=== PATIENT | female | born 1960 | race Caucasian/White ===

== ENCOUNTER 2024-06-09 18:54 | Inpatient (IN) | payer MEDICAID ==
[~2024-06-09] VITALS: Ht 162.6 cm; Wt 65.8 kg
[~2024-06-09 18:54] MED LIST: AMLO5TAB88 PO; ASPI-1406 PO; AZIT500T8 MT; CLOP-31 PO; DOXA-14 PO; INSLIS SUBCUT; LANTUSUD SUBCUT; LIP40 PO; LOSA50TA41 PO
[2024-06-09 20:00] VITALS: BP 135/49; PULSE 84; RESP 18; TEMP 36.50292; O2SAT 100
[2024-06-09 21:00] VITALS: BP 135/49; PULSE 84; RESP 18; TEMP 36.5292
[2024-06-09] MEDS ORDERED: HYDRALAZINE 20MG/ML VIAL IV PRN (22:00)
[2024-06-09] MEDS ORDERED: DEXTROSE 50% WATER 50ML SYRINGE IV PRN (22:00)
[2024-06-09] MEDS ORDERED: CLONIDINE 0.1MG TABLET PO PRN (22:00)
[2024-06-09] MEDS ORDERED: ACETAMINOPHEN 325MG TABLET PO PRN (22:00)
[2024-06-09] MEDS ORDERED: NA PHOS,M-B/NA PHOS,DI-BA ENEMA 118ML PR PRN (22:00)
[2024-06-09] MEDS ORDERED: LACTULOSE 20G/30ML UDC PO PRN (22:00)
[2024-06-09] MEDS ORDERED: HYDRALAZINE 10 MG in SODIUM CHLORIDE 0.9% 49.5 ML IV PRN (23:00)
[2024-06-10] MEDS: HYDRALAZINE HCL 50MG TABLET PO SCH (00:05)
[2024-06-10] MEDS: BLOOD SUGAR DIAGNOSTIC STRIP TEST SCH (00:06)
[2024-06-10] MEDS: INSULIN GLARGINE 100 UNITS/ML SUBCUT SCH (00:29)
[2024-06-10 06:50] VITALS: BP 117/45; PULSE 83; RESP 18; O2SAT 97
[2024-06-10 06:56] LABS: CHLORIDE 103 mEq/L (98-107); POTASSIUM 5.4 mEq/L (3.5-5.1); SODIUM 131 mEq/L (136-145)
[2024-06-10 06:59] LABS: CARBON DIOXIDE 24 mEq/L (21-32)
[2024-06-10 07:00] LABS: CALCIUM 8.7 mg/dL (8.7-10.4)
[2024-06-10 07:04] LABS: CREATININE 0.8 mg/dL (0.6-1.0); GLUCOSE 226 mg/dL (70-105); UREA NITROGEN BLOOD 39 mg/dL (9-23)
[2024-06-10 07:05] LABS: ALANINE AMINOTRANSFERASE 61 IU/L (10-49)
[2024-06-10 07:06] LABS: ASPARTATE AMINOTRANSFERASE 32 IU/L (<34); PREALBUMIN 16.2 mg/dl (10.0-40.0)
[2024-06-10 07:07] LABS: BILIRUBIN TOTAL 0.6 mg/dL (0.1-1.0); PROTEIN TOTAL 5.6 g/dL (6.0-8.3)
[2024-06-10 07:08] LABS: BASOPHILS % 0.2 % (0.0-2.0); HEMATOCRIT. 25.8 % (36.0-48.0); HEMOGLOBIN. 8.5 g/dL (12.0-16.0); LYMPHOCYTES % 12.1 % (20.0-50.0); MEAN CORPUSCULAR HEMOGLOBIN 29.1 pg (28.0-32.0); MEAN CORPUSCULAR VOLUME 88.2 fL (81.0-99.0); MEAN PLATELET VOLUME 10.4 fl (7.4-10.4); MONOCYTES % 6.1 % (2.0-8.0); NEUTROPHILS % 80.6 % (40.0-76.0); PLATELET 235 x1000/uL (130-400); RED BLOOD CELL COUNT 2.92 mill/uL (4.2-5.4); WHITE BLOOD COUNT 11.9 x1000/uL (4.5-11.0)
[2024-06-10] MEDS: ENOXAPARIN 40MG/0.4ML SYR SUBCUT SCH (08:37)
[2024-06-10] MEDS: ASPIRIN 81MG EC TABLET PO SCH (08:37)
[2024-06-10] MEDS: CLOPIDOGREL 75MG TABLET PO SCH (08:37)
[2024-06-10] MEDS: INSULIN LISPRO 100 UNITS/ML SUBCUT SCH (08:43)
[2024-06-10] MEDS: DOXAZOSIN MESYLATE 2MG TABLET PO SCH (08:44)
[2024-06-10] MEDS: AMLODIPINE 5MG TABLET PO SCH (08:45)
[2024-06-10] MEDS: LOSARTAN 50 MG TABLET PO SCH (08:45)
[2024-06-10] MEDS: SODIUM ZIRCONIUM CYCLOSILICATE 10GM/PACKET PO NR (13:13)
[2024-06-10] MEDS: BISACODYL 10MG SUPP PR NR (16:30)
[2024-06-10 20:00] VITALS: BP 138/49; PULSE 88; RESP 1; TEMP 36.3918; O2SAT 97
[2024-06-10] MEDS: ATORVASTATIN CALCIUM 40MG TABLET PO SCH (21:07)
[2024-06-11] MEDS: ONDANSETRON HCL 4MG/2ML INJ IV PRN (04:45)
[2024-06-11 07:17] LABS: CREATINE KINASE 59 IU/L (34-145)
[2024-06-11 08:00] VITALS: BP 114/66; PULSE 85; RESP 19; TEMP 36.3918; O2SAT 99
[2024-06-11] MEDS: ACETAMINOPHEN 325MG TABLET PO PRN (15:13)
[2024-06-11] MEDS ORDERED: POLYVINYL ALCOHOL OPHTH DROPS 15ML BOTHEYE PRN (16:00)
[2024-06-11 20:00] VITALS: BP 109/32; PULSE 84; RESP 18; TEMP 36.3918; O2SAT 95
[2024-06-11] MEDS: ATORVASTATIN CALCIUM 20MG TABLET PO SCH (20:24)
[2024-06-12 08:00] VITALS: BP 118/45; PULSE 82; RESP 20; TEMP 36.114; O2SAT 99
[2024-06-12 10:44] LABS: CHLORIDE 99 mEq/L (98-107); POTASSIUM 4.9 mEq/L (3.5-5.1); SODIUM 128 mEq/L (136-145)
[2024-06-12 10:45] LABS: CALCIUM 8.2 mg/dL (8.7-10.4); CARBON DIOXIDE 24 mEq/L (21-32)
[2024-06-12 10:50] LABS: GLUCOSE 329 mg/dL (70-105); IRON 40 ug/dL (50-170); UREA NITROGEN BLOOD 39 mg/dL (9-23)
[2024-06-12 10:52] LABS: ALANINE AMINOTRANSFERASE 46 IU/L (10-49); ALBUMIN 3.1 g/dL (3.2-4.8); ASPARTATE AMINOTRANSFERASE 33 IU/L (<34)
[2024-06-12 10:53] LABS: BILIRUBIN TOTAL 0.5 mg/dL (0.1-1.0); FERRITIN 308 ng/mL (10-291); FOLIC ACID (FOLATE) SERUM 14.01 ng/mL (>5.38); PROTEIN TOTAL 5.6 g/dL (6.0-8.3); THYROID STIMULATING HORMONE 1.79 uIU/mL (0.55-4.78); TOTAL IRON BINDING CAPACITY 316 ug/dl (250-425)
[2024-06-12 10:54] LABS: VITAMIN B12 SERUM 1206 pg/mL (211-911)
[2024-06-12 11:52] LABS: BASOPHILS % 0.2 % (0.0-2.0); EOSINOPHILS % 0.9 % (0.0-5.0); HEMOGLOBIN. 8.4 g/dL (12.0-16.0); LYMPHOCYTES % 13.1 % (20.0-50.0); MEAN CORPUSCULAR HGB CONC 33.7 g/dL (31.0-37.0); MEAN CORPUSCULAR VOLUME 88.9 fL (81.0-99.0); MEAN PLATELET VOLUME 10.5 fl (7.4-10.4); MONOCYTES % 5.2 % (2.0-8.0); NEUTROPHILS % 80.6 % (40.0-76.0); PLATELET 262 x1000/uL (130-400); RED BLOOD CELL COUNT 2.81 mill/uL (4.2-5.4); RED CELL DISTRIBUTION WIDTH 14.5 % (11.6-14.6); WHITE BLOOD COUNT 10.3 x1000/uL (4.5-11.0)
[2024-06-12 20:00] VITALS: PULSE 80; RESP 18; TEMP 36.50292; O2SAT 98
[2024-06-13 08:00] VITALS: BP 123/43; PULSE 84; RESP 20; TEMP 36.72516; O2SAT 99
[2024-06-13 20:00] VITALS: BP 119/46; PULSE 78; RESP 17; TEMP 36.33624; O2SAT 100
[2024-06-13] MEDS ORDERED: ALBUTEROL (0.083%) 2.5MG/3ML NEB HHN PRN (22:15)
[2024-06-14] MEDS ORDERED: ZOLPIDEM TARTRATE 5MG TABLET PO PRN (05:45)
[2024-06-14] MEDS: LORAZEPAM 0.5MG TABLET PO PRN (05:53)
[2024-06-14 06:49] LABS: BASOPHILS % 0.3 % (0.0-2.0); EOSINOPHILS % 0.9 % (0.0-5.0); HEMATOCRIT. 22.6 % (36.0-48.0); HEMOGLOBIN. 7.7 g/dL (12.0-16.0); MEAN CORPUSCULAR HEMOGLOBIN 30.6 pg (28.0-32.0); MEAN CORPUSCULAR HGB CONC 34.1 g/dL (31.0-37.0); MEAN CORPUSCULAR VOLUME 89.8 fL (81.0-99.0); MONOCYTES % 6.3 % (2.0-8.0); NEUTROPHILS % 80.5 % (40.0-76.0); PLATELET 259 x1000/uL (130-400); RED BLOOD CELL COUNT 2.52 mill/uL (4.2-5.4); RED CELL DISTRIBUTION WIDTH 14.3 % (11.6-14.6)
[2024-06-14 06:50] LABS: CARBON DIOXIDE 25 mEq/L (21-32); CHLORIDE 98 mEq/L (98-107); SODIUM 126 mEq/L (136-145)
[2024-06-14 06:52] LABS: CALCIUM 8.5 mg/dL (8.7-10.4)
[2024-06-14 06:56] LABS: CREATININE 0.9 mg/dL (0.6-1.0); GLUCOSE 214 mg/dL (70-105)
[2024-06-14 06:57] LABS: UREA NITROGEN BLOOD 41 mg/dL (9-23)
[2024-06-14 07:15] LABS: DIFFERENTIAL COMMENT 1
[2024-06-14 08:00] VITALS: BP 113/42; PULSE 80; RESP 19; TEMP 36.55848; O2SAT 100
[2024-06-14] MEDS: SODIUM ZIRCONIUM CYCLOSILICATE 10GM/PACKET PO NR (10:26)
[2024-06-14 20:00] VITALS: BP 106/64; PULSE 18; RESP 18; TEMP 36.61404; O2SAT 95
[2024-06-15 08:00] VITALS: BP 107/45; PULSE 76; RESP 20; TEMP 36.72516; O2SAT 99
[2024-06-15] MEDS: LIDOCAINE 5% PATCH TOP SCH (16:34)
[2024-06-15] MEDS ORDERED: IPRATROPIUM/ALBUTEROL 0.5-3(2.5)MG/3ML NEB HHN SCH (18:00)
[2024-06-15 18:53] LABS: CALCIUM 8.1 mg/dL (8.7-10.4)
[2024-06-15 18:58] LABS: BASOPHILS % 0.4 % (0.0-2.0); CREATININE 1.1 mg/dL (0.6-1.0); EOSINOPHILS % 0.6 % (0.0-5.0); HEMATOCRIT. 21.3 % (36.0-48.0); HEMOGLOBIN. 7.1 g/dL (12.0-16.0); LYMPHOCYTES % 12.5 % (20.0-50.0); MEAN CORPUSCULAR HEMOGLOBIN 29.4 pg (28.0-32.0); MEAN CORPUSCULAR HGB CONC 33.5 g/dL (31.0-37.0); MEAN CORPUSCULAR VOLUME 87.8 fL (81.0-99.0); MEAN PLATELET VOLUME 10.8 fl (7.4-10.4); MONOCYTES % 5.3 % (2.0-8.0); NEUTROPHILS % 81.2 % (40.0-76.0); PLATELET 243 x1000/uL (130-400); RED BLOOD CELL COUNT 2.43 mill/uL (4.2-5.4); RED CELL DISTRIBUTION WIDTH 14.2 % (11.6-14.6); WHITE BLOOD COUNT 7.5 x1000/uL (4.5-11.0)
[2024-06-15 20:00] VITALS: BP 103/35; PULSE 76; RESP 19; TEMP 36.44736; O2SAT 97
[2024-06-15] MEDS: FUROSEMIDE 40MG TABLET PO SCH (21:53)
[2024-06-15] MEDS: GABAPENTIN 300MG CAPSULE PO SCH (21:54)
[2024-06-16 01:20] VITALS: BP 116/40; PULSE 60; RESP 16; TEMP 36.50292; O2SAT 99
== END 2024-06-16 05:22 | DRG 45 ==
LOC: 7WST 18:54
PROVIDERS: ADMIT Physical Medicine & Rehabilitation Spinal Cord Injury Medicine; ATTEND Internal Medicine
PROC: 5A12012 Performance of Cardiac Output, Single, Manual (ICD-10-PCS; principal; 2024-06-16)
PROC: 0BH17EZ Insertion of Endotracheal Airway into Trachea, Via Natural or Artificial Opening (ICD-10-PCS; 2024-06-16)
DX: I63.89 Other cerebral infarction (principal); J96.01 Acute respiratory failure with hypoxia; A41.9 Sepsis, unspecified organism; N17.9 Acute kidney failure, unspecified; E87.1 Hypo-osmolality and hyponatremia; I69.351 Hemiplegia and hemiparesis following cerebral infarction affecting right dominant side; B35.1 Tinea unguium; E11.22 Type 2 diabetes mellitus with diabetic chronic kidney disease; D64.9 Anemia, unspecified; E78.00 Pure hypercholesterolemia, unspecified; E87.5 Hyperkalemia; G89.29 Other chronic pain; I12.9 Hypertensive chronic kidney disease with stage 1 through stage 4 chronic kidney disease, or unspecified chronic kidney disease; M48.061 Spinal stenosis, lumbar region without neurogenic claudication; N18.1 Chronic kidney disease, stage 1; N39.0 Urinary tract infection, site not specified; I69.328 Other speech and language deficits following cerebral infarction; I46.9 Cardiac arrest, cause unspecified; I89.0 Lymphedema, not elsewhere classified; L60.3 Nail dystrophy; I16.0 Hypertensive urgency; F41.9 Anxiety disorder, unspecified; G47.00 Insomnia, unspecified; R11.2 Nausea with vomiting, unspecified; R68.89 Other general symptoms and signs; R05.9 Cough, unspecified; R60.0 Localized edema; R79.89 Other specified abnormal findings of blood chemistry; R80.9 Proteinuria, unspecified; R91.8 Other nonspecific abnormal finding of lung field; I69.391 Dysphagia following cerebral infarction; Z83.3 Family history of diabetes mellitus; Z91.81 History of falling; Z79.02 Long term (current) use of antithrombotics/antiplatelets; Z79.4 Long term (current) use of insulin; Z79.82 Long term (current) use of aspirin; Z79.899 Other long term (current) drug therapy; Z82.49 Family history of ischemic heart disease and other diseases of the circulatory system
CPT/HCPCS: 31500; 36415; 71045; 80048; 80053; 82306; 82550; 82607; 82728; 82746; 82962; 83036; 83540; 83550; 83880; 84134; 84145; 84443; 85025; 92523; 92610; 92950; 93970; 97110; 97112; 97116; 97162; 97166; 97530; 97535; 97542; J1650; J1815; J2405